=== PATIENT | male | born 1975 | race Caucasian/White ===

== ENCOUNTER 2017-03-16 11:29 | Emergency (ER) | payer OTHER ==
[~2017-03-16] VITALS: Ht 182.9 cm; Wt 78.0 kg
[2017-03-16 11:30] VITALS: BP 149/104
--- NOTE | 2017-03-16 13:44 | NUR ---
AFFECTED TOE DERICK TAPED. HARD SOLE SHOE PROVIDED. D/C IN STABLE CONDITION.
== END 2017-03-16 13:46 | disposition home or self-care (01) ==
LOC: ER 11:32
DX: S92.512A Displaced fracture of proximal phalanx of left lesser toe(s), initial encounter for closed fracture (principal); Z88.6 Allergy status to analgesic agent; W22.8XXA Striking against or struck by other objects, initial encounter; Y93.01 Activity, walking, marching and hiking; Y92.89 Other specified places as the place of occurrence of the external cause; Y99.8 Other external cause status
CPT/HCPCS: 73660-TC; A4606; Z7610